=== PATIENT | female | born 1960 | race Hispanic/Latino ===

== ENCOUNTER 2022-02-23 04:02 | Inpatient (IN) | payer OTHER ==
[2022-02-23] MEDS ORDERED: INSULIN -REGULAR HUMAN 50 UNIT/0.5 ML ML ONE (04:36)
[2022-02-23 04:44] LABS: Absolute Lymphocytes (CBC) 4.3 K/uL (0.7-4.9); Hematocrit 34.1 % (36.0-45.0); Lymphocytes % 33.8 % (15.3-44.8); MCV 102.5 fL (80-100); MPV 7.4 fL (7.6-11.3); RBC Red Blood Cell Count 3.33 M/uL (3.86-4.86)
[2022-02-23 04:45] LABS: Protime INR 1.27
[2022-02-23 04:55] LABS: Albumin 2.7 g/dL (3.4-5.0); Magnesium 2.3 mg/dL (1.8-2.4)
[2022-02-23] MEDS ORDERED: EPINEPHRINE/PF 1 MG/ML AMP ONE ×2 (04:56→05:02)
[2022-02-23] MEDS ORDERED: NA CHLORIDE 0.9% 250 ML ONE (04:56)
[2022-02-23 04:57] LABS: Potassium 5.7 mmol/L (3.5-5.1)
[2022-02-23 04:58] LABS: Bilirubin Total 0.5 mg/dL (0.2-1.0); Protein, Total 7.7 g/dL (6.4-8.2)
[2022-02-23 05:00] LABS: Arterial Blood Carboxyhemoglob 0.6 % (0-1.5); Blood O2 Saturation 94.7 % (92-98.5)
[2022-02-23 05:01] LABS: Troponin High Sensitivity 41.5 pg/mL (<58.9)
--- NOTE | 2022-02-23 05:14 | ER ---
Nurse's Notes [facility] Name: Kenisha Carrera Age: 61 yrs Sex: Female : 1960 Arrival Date: 02/23/2022 Time: 04:05 Bed 3 Private MD: Diagnosis: Cardiac arrest, cause unspecified;Anemia, unspecified;End stage renal disease Presentation: 02/23 03:58 Chief complaint: EMS states: Called for patient with respiratory distress, on arrival, lp1 patient breathing 5x/min, unresponsive, reported to have missed dialysis on Saturday; On intubation by EMS, patient in cardiac arrest, CPR began at 0343, intubated with 7.5 ETT, Etomindate 20mg given IV for intubation, Epinephrine x3 given by EMS; CPR continued on arrival to ED. 03:58 Acuity: PURA 1 lp1 03:58 Method Of Arrival: EMS: [facility] lp1 03:58 Care prior to arrival: Oral intubation, CPR via thumper and is still in progress IV lp1 initiated. 20 GA, in the left upper arm Oxygen administered. via AMBU bag. 03:58 Compressions began prior to arrival. lp1 04:00 Coronavirus screen: unable to obtain. Ebola Screen: Unable to complete the Ebola lp1 screening because: Patient is intubated. Initial Sepsis Screen: Does the patient meet any 2 criteria? Systolic BP < 90 mmHg. Altered Mental Status. Does the patient have a suspected source of infection? No. Patient's initial sepsis screen is negative. Risk Assessment: Do you want to hurt yourself or someone else? Unable to obtain. 04:00 Onset of symptoms was February 23, 2022 at 03:30. lp1 Triage Assessment: 03:58 General: Appears Non Responsive . kd3 03:58 Pain: Unable to use pain scale. Patient is unresponsive. Neuro: Level of Consciousness kd3 is unresponsive, Pupils are fixed, dilated, non-reactive. Cardiovascular:. GI: Abdomen is distended. Derm: Skin is dusky, pale, Skin temperature is cool. Historical: - Allergies: 05:59 No Known Allergies; lp1 - Home Meds: 06:00 Unable to obtain [Active]; lp1 - PMHx: 05:59 Dialysis MWF; HTN; Diabetes mellitus; lp1 - PSHx: 05:59 Unable to Obtain; lp1 - Immunization history:: Adult Immunizations up to date. - Social history:: Smoking status: Patient denies any tobacco usage or history of. Screenin:58 Abuse screen: Denies threats or abuse. Denies injuries from another. Nutritional kd3 screening: No deficits noted. Tuberculosis screening: No symptoms or risk factors identified. Fall Risk None identified. Assessment: 03:58 General: Behavior is unresponsive. kd3 03:58 Reassessment: Pt arrived to the ED, intubated, CPR initiated by EMS. Pt removed from kd3 the LUCUS, pulse check. No pulse felt, CPR resumed. Neuro: Level of Consciousness is unresponsive. Cardiovascular: Rhythm is asystole Dialysis shunt: in the left arm. Respiratory:. 03:58 GI: Abdomen is distended. kd3 03:58 Neuro: Pupils are fixed, dilated, non-reactive. EENT:. EENT:. kd3 03:58 Cardiac rhythm is asystole. lp1 04:01 Cardiac rhythm is Sinus Tach. lp1 04:16 Cardiac rhythm is PEA; CPR initiated. lp1 04:18 Reassessment: RT placed patient on ventilator; TV 400, rate 20, 60% O2, PEEP 5. lp1 04:18 Cardiac rhythm is Sinus Tach. lp1 04:46 Cardiac rhythm is PEA, CPR initiated. lp1 04:49 Cardiac rhythm is Sinus Rhythm. lp1 05:01 Reassessment: family at bedside, discussing care with Dr. De Oliveira. lp1 05:10 Reassessment: Daughter at bedside, Kerry, discussed with Dr. De Oliveira, no CPR furthermore. lp1 05:35 Reassessment: Patient to CT. lp1 06:20 Reassessment: OG tube advanced about 8cm per Provider; family at bedside; sharon alcala lp1 applied to patient. 06:38 Reassessment: No purposeful movement noted. Neuro: Pupils are fixed, constricted. lp1 08:26 Reassessment: Pt cleaned of bowel incontinence, stool liquid in consistency and ph continuously leaking from rectum, fecal management system placed, stomach also noted to be distended, OG tube displaced and curled in mouth, d/c and replaced w/ 16 Fr OG. 09:58 Reassessment: Tech at bedside for EEG, pt remains unresponsive w/ no sedation, pupils ph fixed and dilated. 10:15 Reassessment: Core temp noted to have increased, sharon hugger blanket removed. ph 11:04 Reassessment: Report called to Rebecca BURTON in ICU. ph Vital Signs: 02:53 BP 220 / 81; Pulse 112; Resp 20; Pulse Ox 100% on 60% FiO2 ETT vent; lp1 04:03 BP 154 / 128; Pulse 115; Resp 18; Pulse Ox 100% on 15% BVM; lp1 04:22 BP 234 / 90; Pulse 94; Resp 20; Pulse Ox 100% on 60% FiO2 ETT vent; lp1 04:27 BP 141 / 68; Pulse 58; Resp 18; Pulse Ox 96% on 60% FiO2 ETT vent; lp1 04:34 BP 125 / 56; Pulse 52; Resp 20; Pulse Ox 98% on 60% FiO2 ETT vent; lp1 04:38 Temp 99.2(R); lp1 04:40 BP 100 / 53; Pulse 56; Resp 20; Pulse Ox 97% on 60% FiO2 ETT vent; lp1 04:47 Weight 80 kg; lp1 04:50 BP 204 / 73; Pulse 99; Resp 20; Pulse Ox 99% on 60% FiO2 ETT vent; lp1 04:55 BP 176 / 64; Pulse 99; Resp 20; Temp 89.5(C); Pulse Ox 98% on 60% FiO2 ETT vent; lp1 05:00 BP 135 / 67; Pulse 95; Resp 20; Temp 92.9(C); Pulse Ox 98% on 60% FiO2 ETT vent; lp1 05:10 BP 116 / 55; Pulse 92; Resp 20; Temp 95.9(C); Pulse Ox 97% on 60% FiO2 ETT vent; lp1 05:30 BP 106 / 51; Pulse 85; Resp 20; Temp 96.1(C); Pulse Ox 95% on 60% FiO2 ETT vent; lp1 06:00 BP 110 / 57; Pulse 90; Resp 20; Temp 95.6(C); Pulse Ox 96% on 60% FiO2 ETT vent; lp1 06:30 BP 111 / 61; Pulse 96; Resp 21; Temp 95.2(C); Pulse Ox 96% on 60% FiO2 ETT vent; lp1 07:00 BP 129 / 70; Pulse 102; Resp 20; Temp 95.0(C); Pulse Ox 98% on 60% FiO2 ETT vent; ph 07:30 BP 147 / 72; Pulse 108; Resp 20; Temp 96.1(C); Pulse Ox 97% on 60% FiO2 ETT vent; ph 08:00 BP 161 / 73; Pulse 111; Resp 20; Temp 96.0; Pulse Ox 97% on 60% FiO2 ETT vent; ph 08:35 BP 163 / 77; Pulse 111; Resp 20; Temp 96.2(C); Pulse Ox 98% on 60% FiO2 ETT vent; ph 09:00 BP 177 / 77; Pulse 110; Resp 20; Temp 96.7; Pulse Ox 98% on 60% FiO2 ETT vent; ph 09:30 BP 175 / 76; Pulse 105; Resp 20; Temp 97.5(C); Pulse Ox 98% on 60% FiO2 ETT vent; ph 10:00 BP 155 / 74; Pulse 108; Resp 20; Temp 98.8; Pulse Ox 98% on 60% FiO2 ETT vent; ph 10:30 BP 144 / 69; Pulse 107; Resp 20; Temp 99.3; Pulse Ox 98% on 60% FiO2 ETT vent; ph 11:00 BP 123 / 66; Pulse 107; Resp 20; Temp 100.1(C); Pulse Ox 97% on 60% FiO2 ETT vent; ph 11:30 BP 117 / 64; Pulse 107; Resp 20; Temp 100.6(C); Pulse Ox 98% on 60% FiO2 ETT vent; ph Vitals: 03:58 Cardiac Rhythm Assessment [place]. kd3 [place] Coma Score: 03:58 Eye Response: none(1). Verbal Response: none(1). Motor Response: none(1). Total: 3. kd3 ED Course: 03:58 Thermoregulation: warm blanket given to patient. kd3 03:58 Arm band placed on right wrist. kd3 04:00 Maintain EMS IV. Dressing intact. Site clean \T\ dry. Gauge \T\ site: 20g to L UA. lp 1 04:00 7.5 ETT placed by EMS, 25 at the lip. lp1 04:00 Patient has correct armband on for positive identification. Side rails up X2. Client lp1 placed on continuous cardiac and pulse oximetry monitoring. NIBP monitoring applied. 04:05 Patient arrived in ED. mw2 04:18 Assisted provider with central line placement. Set up central line tray. Triple lumen lp1 line placed in right femoral. Line placed by Richy HERNANDEZ Placement verified by CXR, blood return, Blood was collected. Time-out/Briefing performed prior to start of procedure? Yes. Was handwashing/sanitizing done immediately prior to procedure? Yes. Was patient positioned to in a way to prevent air embolism? Yes. Was procedure site sterilized? Yes, with Was the site allowed to dry? During the procedure, did the Practitioner(s) maintain a sterile field? Yes. Were unused ports clamped during insertion? Yes. Was blood aspirated from each lumen? Yes. After the procedure, did the Practitioner(s) clean the site and apply a sterile dressing? Yes. 04:19 Davide D eOliveira DO is Attending Physician. ms3 04:20 NGT: inserted 14 Fr. other Oral. lp1 04:22 Triage completed. lp1 04:45 XRAY Chest (1 view) In Process Unspecified. EDMS 04:55 Pradhan cath inserted, using sterile technique, 16 Fr., by ED staff, balloon inflated, to lp1 gravity drainage. 05:04 Anne Marie Vo, MICHEAL is Primary Nurse. kd3 05:12 Jaxson Solitario MD is Hospitalizing Provider. ms3 05:52 CT Head Brain wo Cont In Process Unspecified. EDMS 06:17 Zuhair Lima MD is Hospitalizing Provider. ms3 07:31 Primary Nurse role handed off by Anne Marie Vo RN ph 07:31 No Lassiter RN is Primary Nurse. ph 08:36 Fecal management system placed. NGT: inserted 16 Fr. other via oral route. ph 12:07 Patient admitted, IV remains in place. ph Administered Medications: 04:57 Discontinued: DOPamine 5 mcg/kg/min IV at 10 mcg/min continuous lp1 04:00 Drug: Calcium Chloride 1 grams Route: IVP; Site: left upper arm; lp1 05:21 Follow up: Response: No adverse reaction lp1 04:01 Drug: Sodium Bicarbonate 1 amp Route: IVP; Site: left upper arm; lp1 05:21 Follow up: Response: No adverse reaction lp1 04:03 Drug: Calcium Chloride 1 grams Route: IVP; Site: left upper arm; lp1 05:21 Follow up: Response: No adverse reaction lp1 04:16 Drug: EPINEPHrine 0.1mg/mL 1:10,000 1 mg Route: IVP; Site: left upper arm; lp1 05:21 Follow up: Response: No adverse reaction lp1 04:18 Drug: Sodium Bicarbonate 1 amp Route: IVP; Site: left upper arm; lp1 05:22 Follow up: Response: No adverse reaction lp1 04:28 Drug: Sodium Bicarbonate 1 amp Route: IVP; Site: left upper arm; lp1 05:22 Follow up: Response: No adverse reaction lp1 04:29 Drug: Insulin Regular Human 10 units Route: IVP; Site: left upper arm; lp1 05:22 Follow up: Response: No adverse reaction lp1 04:39 Drug: Atropine 0.5 mg Route: IVP; Site: right femoral; lp1 05:22 Follow up: Response: No adverse reaction lp1 04:43 Drug: DOPamine 5 mcg/kg/min Route: IV; Rate: 10 mcg/min; Site: right femoral; lp1 04:46 Drug: EPINEPHrine 0.1mg/mL 1:10,000 1 mg Route: IVP; Site: right femoral; lp1 05:22 Follow up: Response: No adverse reaction lp1 Medication: 03:58 VIS not applicable for this client. kd3 Point of Care Testing: Blood Glucose: 04:08 Blood Glucose: 203 mg/dL; lp1 Ranges: Outcome: 05:14 Decision to Hospitalize by Provider. ms3 07:00 Outcome Resuscitation successful ph 12:06 Admitted to ICU accompanied by nurse, accompanied by tech, family with patient, via ph stretcher, room 1, with oxygen, on monitor, with chart, Other accompanied by RT Report called to Rebecca BURTON 12:06 Condition: stable 12:07 Patient left the ED. ph Signatures: Dispatcher [employer] EDMS Franny Hartley RN RN lp1 No Lassiter RN RN Rebel Andrews mw2 Davide De Oliveira DO DO ms3 Anne Marie Vo RN RN kd3 Corrections: (The following items were deleted from the chart) 05:18 04:58 BP 204 / 73; Pulse 99bpm; Resp 20bpm; Pulse Ox 99% FiO2 60% vent; lp1 lp1
--- NOTE | 2022-02-23 05:14 | EDPHYS ---
Physician Documentation [facility] Name: Kenisha Carrera Age: 61 yrs Sex: Female : 1960 Arrival Date: 02/23/2022 Time: 04:05 Bed 3 Private MD: ED Physician Davide De Oliveira HPI: 02/23 05:38 This 61 yrs old Female presents to ER via EMS with complaints of CPR. ms3 05:38 Preceding the arrest, the patient was dyspneic. The arrest occurred at home. ms3 Pre-hospital course: The arrest was witnessed by EMS. EMS care prior to arrival: initiation of ACLS, peripheral IV, was successfully placed. intubation was successfully performed, EMS call time was 03:00. EMS on scene time was ACLS details: Initial rhythm was normal sinus rhythm. The presenting rhythm is Sinus Tachycardia Airway: Ambu assist ventilation, Medications given by EMS prior to arrival - Epinephrine IV x 3 doses, Defibrillation was not performed, an external pacer was not used, Response to therapy: continued arrest, CPR began at 0343. Historical: - Allergies: 05:59 No Known Allergies; lp1 - Home Meds: 06:00 Unable to obtain [Active]; lp1 - PMHx: 05:59 Dialysis MWF; HTN; Diabetes mellitus; lp1 - PSHx: 05:59 Unable to Obtain; lp1 - Immunization history:: Adult Immunizations up to date. - Social history:: Smoking status: Patient denies any tobacco usage or history of. ROS: 05:41 Unable to obtain ROS due to Patient unresponsive. ms3 Exam: 04:34 Back: No spinal tenderness. No costovertebral tenderness. Full range of motion. ms3 Skin: Warm, dry with normal turgor. Normal color with no rashes, no lesions, and no evidence of cellulitis. 04:34 ECG was reviewed by the Attending Physician. 04:34 Respiratory: Respirations: intubated, Breath sounds: rales, that are moderate, are heard diffusely, Respiratory rate: BVM 04:34 Abdomen/GI: Inspection: distension, Bowel sounds: normal, Palpation: soft. 04:34 Neuro: Mentation: unable to test, Patient unresponsive, Memory: unable to test, Patient unresponsive, Cranial nerves: unable to test, Patient unresponsive, Cerebellar function: unable to test, Patient unresponsive, Motor: unable to test, Patient unresponsive s/p cardiac arrest, Sensation: unable to test, Patient unresponsive, seizure activity, is not displayed by the patient. 05:41 Head/Face: Normocephalic, atraumatic. ms3 05:41 Constitutional: The patient appears obviously ill. 05:41 Eyes: Periorbital structures: appear normal, Pupils: are fixed and dilated. Vital Signs: 02:53 BP 220 / 81; Pulse 112; Resp 20; Pulse Ox 100% on 60% FiO2 ETT vent; lp1 04:03 BP 154 / 128; Pulse 115; Resp 18; Pulse Ox 100% on 15% BVM; lp1 04:22 BP 234 / 90; Pulse 94; Resp 20; Pulse Ox 100% on 60% FiO2 ETT vent; lp1 04:27 BP 141 / 68; Pulse 58; Resp 18; Pulse Ox 96% on 60% FiO2 ETT vent; lp1 04:34 BP 125 / 56; Pulse 52; Resp 20; Pulse Ox 98% on 60% FiO2 ETT vent; lp1 04:38 Temp 99.2(R); lp1 04:40 BP 100 / 53; Pulse 56; Resp 20; Pulse Ox 97% on 60% FiO2 ETT vent; lp1 04:47 Weight 80 kg; lp1 04:50 BP 204 / 73; Pulse 99; Resp 20; Pulse Ox 99% on 60% FiO2 ETT vent; lp1 04:55 BP 176 / 64; Pulse 99; Resp 20; Temp 89.5(C); Pulse Ox 98% on 60% FiO2 ETT vent; lp1 05:00 BP 135 / 67; Pulse 95; Resp 20; Temp 92.9(C); Pulse Ox 98% on 60% FiO2 ETT vent; lp1 05:10 BP 116 / 55; Pulse 92; Resp 20; Temp 95.9(C); Pulse Ox 97% on 60% FiO2 ETT vent; lp1 05:30 BP 106 / 51; Pulse 85; Resp 20; Temp 96.1(C); Pulse Ox 95% on 60% FiO2 ETT vent; lp1 06:00 BP 110 / 57; Pulse 90; Resp 20; Temp 95.6(C); Pulse Ox 96% on 60% FiO2 ETT vent; lp1 06:30 BP 111 / 61; Pulse 96; Resp 21; Temp 95.2(C); Pulse Ox 96% on 60% FiO2 ETT vent; lp1 07:00 BP 129 / 70; Pulse 102; Resp 20; Temp 95.0(C); Pulse Ox 98% on 60% FiO2 ETT vent; ph 07:30 BP 147 / 72; Pulse 108; Resp 20; Temp 96.1(C); Pulse Ox 97% on 60% FiO2 ETT vent; ph 08:00 BP 161 / 73; Pulse 111; Resp 20; Temp 96.0; Pulse Ox 97% on 60% FiO2 ETT vent; ph 08:35 BP 163 / 77; Pulse 111; Resp 20; Temp 96.2(C); Pulse Ox 98% on 60% FiO2 ETT vent; ph 09:00 BP 177 / 77; Pulse 110; Resp 20; Temp 96.7; Pulse Ox 98% on 60% FiO2 ETT vent; ph 09:30 BP 175 / 76; Pulse 105; Resp 20; Temp 97.5(C); Pulse Ox 98% on 60% FiO2 ETT vent; ph 10:00 BP 155 / 74; Pulse 108; Resp 20; Temp 98.8; Pulse Ox 98% on 60% FiO2 ETT vent; ph 10:30 BP 144 / 69; Pulse 107; Resp 20; Temp 99.3; Pulse Ox 98% on 60% FiO2 ETT vent; ph 11:00 BP 123 / 66; Pulse 107; Resp 20; Temp 100.1(C); Pulse Ox 97% on 60% FiO2 ETT vent; ph 11:30 BP 117 / 64; Pulse 107; Resp 20; Temp 100.6(C); Pulse Ox 98% on 60% FiO2 ETT vent; ph [place] Coma Score: 03:58 Eye Response: none(1). Verbal Response: none(1). Motor Response: none(1). Total: 3. kd3 Procedures: 04:33 Central Line: the site was prepped with in sterile fashion, a triple lumen catheter was la1 inserted, in the right femoral vein, in 1 attempts. placement was verified, by blood return, the site was dressed with Tegaderm, using sterile technique, the patient tolerated the procedure, well. MDM: 04:19 Patient medically screened. ms3 04:34 Data reviewed: vital signs, nurses notes, lab test result(s), and as a result, I will ms3 admit patient. Data interpreted: bus driver/monitor: rate is 92 beats/min, rhythm is normal sinus rhythm, with no ectopy, Interpretation: normal rate, normal rhythm. 05:09 Differential diagnosis: arrythmia, cardiac arrest, respiratory arrest, Hyperkalemia. ED ms3 course: Per patient's daughter Kerry patient is DNR. They do not wish patient to receive chest compressions. 05:38 ED course: Page placed for Dr Mera. Answering service states Dr Calderon is air pollution engineer ms3 and will be calling back.. 05:50 ED course: Patient with ROSC at 0401. Patient went into PEA at 0416 and ACLS performed ms3 with ROSC at 0418 with sinus tachycardia. Patient went into PEA at 0446 and ACLS performed with ROSC at 0449 with sinus tachycardia.. ED course: . 06:07 ED course: Discussed case with Dr Calderon and if patient is stable will attempt ms3 dialysis after discussion with patient's family.. 02/23 04:19 Order name: CBC with Diff; Complete Time: 04:51 ms3 02/23 04:19 Order name: Magnesium; Complete Time: 05:11 ms3 02/23 04:19 Order name: NT PRO-BNP; Complete Time: 05:11 ms3 02/23 04:19 Order name: PT-INR; Complete Time: 04:51 ms3 02/23 04:19 Order name: Troponin HS; Complete Time: 05:11 ms3 02/23 04:19 Order name: CMP; Complete Time: 05:11 ms3 02/23 04:45 Order name: Lactate; Complete Time: 05:31 bb 02/23 04:45 Order name: Blood Culture Adult (2) bb 02/23 04:59 Order name: ABG Arterial Blood Gas; Complete Time: 05:01 EDMS 02/23 05:51 Order name: COVID-19 SARS RT PCR (Document "Date of Onset" if Symptomatic); Complete bb Time: 08:20 02/23 07:25 Order name: ABG Arterial Blood Gas EDMS 02/23 07:25 Order name: CBC with Automated Diff EDMS 02/23 07:25 Order name: Comprehensive Metabolic Panel EDMS 02/23 07:27 Order name: Lactate EDMS 02/23 04:19 Order name: XRAY Chest (1 view) ms3 02/23 04:19 Order name: EKG; Complete Time: 04:20 ms3 02/23 04:19 Order name: Cardiac monitoring; Complete Time: 04:24 ms3 02/23 05:09 Order name: CT Head Brain wo Cont ms3 02/23 07:21 Order name: CONS Physician Consult EDMS 02/23 04:19 Order name: EKG - Nurse/Tech; Complete Time: 04:41 ms3 02/23 04:19 Order name: IV Saline Lock; Complete Time: 04:24 ms3 02/23 04:19 Order name: Labs collected and sent; Complete Time: 04:41 ms3 02/23 04:19 Order name: O2 Per Protocol; Complete Time: 04:24 ms3 02/23 04:19 Order name: O2 Sat Monitoring; Complete Time: 04:24 ms3 EC:34 Rate is 48 beats/min. Rhythm is regular. QRS [place] is Normal. [place] interval is normal. ms3 Clinical impression: Sinus bradycardia. Interpreted by me. Reviewed by me. Administered Medications: 04:57 Discontinued: DOPamine 5 mcg/kg/min IV at 10 mcg/min continuous lp1 04:00 Drug: Calcium Chloride 1 grams Route: IVP; Site: left upper arm; lp1 05:21 Follow up: Response: No adverse reaction lp1 04:01 Drug: Sodium Bicarbonate 1 amp Route: IVP; Site: left upper arm; lp1 05:21 Follow up: Response: No adverse reaction lp1 04:03 Drug: Calcium Chloride 1 grams Route: IVP; Site: left upper arm; lp1 05:21 Follow up: Response: No adverse reaction lp1 04:16 Drug: EPINEPHrine 0.1mg/mL 1:10,000 1 mg Route: IVP; Site: left upper arm; lp1 05:21 Follow up: Response: No adverse reaction lp1 04:18 Drug: Sodium Bicarbonate 1 amp Route: IVP; Site: left upper arm; lp1 05:22 Follow up: Response: No adverse reaction lp1 04:28 Drug: Sodium Bicarbonate 1 amp Route: IVP; Site: left upper arm; lp1 05:22 Follow up: Response: No adverse reaction lp1 04:29 Drug: Insulin Regular Human 10 units Route: IVP; Site: left upper arm; lp1 05:22 Follow up: Response: No adverse reaction lp1 04:39 Drug: Atropine 0.5 mg Route: IVP; Site: right femoral; lp1 05:22 Follow up: Response: No adverse reaction lp1 04:43 Drug: DOPamine 5 mcg/kg/min Route: IV; Rate: 10 mcg/min; Site: right femoral; lp1 04:46 Drug: EPINEPHrine 0.1mg/mL 1:10,000 1 mg Route: IVP; Site: right femoral; lp1 05:22 Follow up: Response: No adverse reaction lp1 Point of Care Testing: Blood Glucose: 04:08 Blood Glucose: 203 mg/dL; lp1 Ranges: Critical Glucose Levels:Adult <50 mg/dl or >400 mg/dl <40 mg/dl or >180 mg/dl Disposition: 05:53 Co-signature as Attending Physician, Davide De Oliveira DO. ms3 06:08 Critical Care:. ms3 Disposition Summary: 02/23/22 05:14 Hospitalization Ordered Hospitalization Status: Inpatient Admission ms3 Location: Intensive Care Unit ms3 Condition: Critical ms3 Problem: new ms3 Symptoms: have improved ms3 Bed/Room Type: Standard ms3 Provider: Zuhair Lima(02/23/22 06:17) ms3 Room Assignment: 5-(02/23/22 10:06) aa5 Diagnosis - Cardiac arrest, cause unspecified ms3 - Anemia, unspecified ms3 - End stage renal disease ms3 Forms: - Medication Reconciliation Form ms3 - SBAR form ms3 Critical care time excluding procedures: 06:08 Critical care time: Bedside Care: 75 minutes, Consultation: 10 minutes, Family ms3 Intervention: 15 minutes. Total time: 100 minutes Signatures: Dispatcher [employer] EDMS María Elena Mcdonald RN RN aa5 Franny Hartley RN RN lp1 Richy Collier FNP-C LIANA-Davide Bailey DO DO ms3 Corrections: (The following items were deleted from the chart) 05:43 05:38 Pre-hospital course: The arrest was witnessed by EMS. EMS care prior to arrival: ms3 initiation of ACLS, peripheral IV, was successfully placed. intubation was successfully performed, EMS call time was 03:00. EMS on scene time was ms3 06:17 05:14 Jaxson Solitario ms3 ms3 10:06 05:14 ms3 aa5
[2022-02-23] MEDS: INSULIN -REGULAR HUMAN 50 UNIT/0.5 ML ML SQ SCH ×4 (07:30→20:40)
--- NOTE | 2022-02-23 07:30 | P.HP ---
Certification for Inpatient Patient admitted to: Inpatient Practitioner: I am a practitioner with admitting privileges, knowledge of patient current condition, hospital course, and medical plan of care. Services: Services provided to patient in accordance with Admission requirements found in Title 42 Section 412.3 of the Code of Federal Regulations Patient History Date of Service: 02/23/22 History of Present Illness: 61yo F, PMH: ESRD on HD, chronic pain, DM2, HTN, hypothyroidisim Brought to ED with CPR en route for ~25 minutes, continued her for additiona ~5 minutes before obtaining ROSC. Patient was breathing slow and eventually lost consciousness ~2 minutes prior to EMS arrival. Patient was noted to be breathing <4 bpm. She was intubated and had cardiac arrest. Family report patient was in usual state of health until last night - she reported feeling somewhat short of breath. She went out of town 2 days ago to go to a . Continued to take all medications as prescribed, but she did miss dialysis. In the ED, she was noted to be unresponsive with fixed and dilated pupils, not breathing over the vent, with mild leukocytosis, high lactic acidosis, and significant metabolic acidosis. Patient admitted to ICU for further management. Allergies No Known Allergies Allergy (Unverified 02/23/22 07:37) - Past Medical/Surgical History -: DM2 -: HTN -: chronic pain -: hypothyroidism -: ERSD on HD Past Surgical History: Unable to obtain - Family History Family History: Reviewed- Non-Contributory - Social History Smoking Status: Unknown if ever smoked Place of Residence: Home Review of Systems is unable to be obtained Physical Examination - Physical Exam General: Unresponsive HEENT: Other (dilated and nonreactive pupils) Neck: No LAD Respiratory: Other (b/l crackles at bases, on mechanical ventilation) Cardiovascular: Regular rate/rhythm, Edema (2+ b/l lower extremity edema) Capillary refill: >2 Seconds Gastrointestinal: Soft and benign, Non-distended Integumentary: Other (chronic nonhealing wounds on b/l legs, no purulent drainage, no surrounding erythema) Neurological: Other (unresponsive, +doll's eye, negative: pupillary reflex, corneal reflex, gag reflex) Urinary: Pradhan catheter (placed in ED) - Studies Laboratory Data (last 24 hrs) 02/23/22 04:15: PT 14.0 H, INR 1.27 02/23/22 04:15: Sodium 138, Potassium 5.7 H*, BUN 69 H, Creatinine 8.76 H*, Glucose 305 H, Magnesium 2.3, Total Bilirubin 0.5, AST 72 H, ALT 62, Alkaline Phosphatase 135 H 02/23/22 04:15: WBC 12.8 H, Hgb 10.6 L, Hct 34.1 L, Plt Count 211 Assessment and Plan - Advance Directives Does patient have a Living Will: No Does patient have a Durable POA for Healthcare: No Physician Review Additional Text: Problem List metabolic acidosis s/p pulmonary and cardiac arrest ESRD on HD unresponsive HTN DM2 GERD Chronic pain CAD HLD Patient with fixed and dilated pupils, absent corneal and gag reflex has not received any sedatives. on mechanical ventilation not requiring pressors low bicarb, hyperkalemia, leukocytosis, lactic acidosis unclear etiology that lead to patient having pulmonary arrest, possibly build of toxins / potassium / fluid lead to respiratory depression and arrest ~25-30min CPR LFTs increased, suspect shock liver patient with no rectal tone CT head without changes - suspect too early to visualize anoxic brain injury family want to continue treatment, DNR going forward Nephrology consulted for dialysis start bicarb drip recheck ABG and labs in 3 hrs admit to ICU empiric antibiotics for possible infection. currently no overt evidence of infe ction very poor prognosis family on way to visit discussed with patient's oldest daughter, who makes medical decisions Code: DNR Time Spent Managing Pts Care (In Minutes): 75
[2022-02-23] MEDS ORDERED: VANCOMYCIN 1 GM in NA CHLORIDE 0.9% 250 ML IVPB SCH (08:00)
[2022-02-23] MEDS ORDERED: D5W 1,000 ML with NA BICARB 8.4% 150 MEQ IV SCH ×2 (08:00)
[2022-02-23] MEDS ORDERED: CEFTRIAXONE 1,000 MG in NA CHLORIDE 0.9% 50 ML IVPB SCH (09:00)
[2022-02-23] MEDS: HEPARIN 5000 UNIT/ML 1 ML VIAL SQ SCH ×2 (09:00→20:40)
[2022-02-23] MEDS ORDERED: CEFTRIAXONE 1000 MG/VIAL ONE (09:08)
[2022-02-23] MEDS ORDERED: NA CHLORIDE 0.9% 50 ML ONE (09:08)
[2022-02-23] MEDS ORDERED: HEPARIN 5000 UNIT/ML 1 ML VIAL ONE (09:08)
--- NOTE | 2022-02-23 10:17 | RAD REPORT ---
EXAM DESCRIPTION: CT - Head Brain Wo Cont - 02/23/2022 6:56 am CLINICAL HISTORY: Cardiac Arrest COMPARISON: None. TECHNIQUE: CT HEAD WITHOUT IV CONTRAST on 02/23/2022 5:09 AM CDT This exam was performed according to our departmental dose-optimization program, which includes autom ated exposure control, adjustment of the mA and/or kV according to patient size and/or use of iterati ve reconstruction technique. FINDINGS: There is no acute hemorrhage, mass effect or midline shift. There is minimal encephalomala chayo or edema in the left frontal lobe periventricular white matter. There is no hydrocephalus. There is no significant volume loss for age. The calvarium is intact. Orbits and globes are unremarkable. The paranasal sinuses are clear. Mastoid air cells are clear. IMPRESSION: No acute intracranial findings. Electronically signed by: Joe Saucedo MD 02/23/2022 6:41 AM CDT Due to temporary technical issues with the PACS/Fluency reporting system, reports are being signed by the in house radiologists without review as a courtesy to insure prompt reporting. The interpreting radiologist is fully responsible for the content of the report.
--- NOTE | 2022-02-23 11:06 | RAD REPORT ---
EXAM DESCRIPTION: RAD - Chest Single View - 02/23/2022 4:43 am CLINICAL HISTORY: 61 years Female, cardiac arrest COMPARISON: Prior chest x-ray report from 08/16/2021. The images were not available for comparison. TECHNIQUE: Single portable x-ray view of the chest performed on 02/23/2022 at 4:35 AM FINDINGS: The lungs are well-expanded. There are diffuse perihilar interstitial opacities which may reflect vascular congestion. A defibrillator pad projects over the left inferior hemithorax partially obscuring the left inferior hemithorax. There is no evidence of a pneumothorax. The cardiac silhouette is prominent and may be accentuated by the portable supine technique. The mediastinal contours are normal. No acute osseous abnormality is identified. No acute soft tissue abnormalities are seen. Lines and tubes: The endotracheal tube tip terminates approximately 8 mm above the watson. The feed ing tube extends below the diaphragm to the level of the GE junction. The proximal sidehole projects above the diaphragm. There are multiple overlying monitor and storage bin tender leads. Free air: None IMPRESSION: 1. Diffuse perihilar interstitial opacities which may reflect vascular congestion. 2. The tip of the endotracheal tube terminates approximately 8 mm above the watson. 3. The feeding tube extends below the diaphragm to the level of the GE junction. The proximal sideh ole projects above the diaphragm. Recommend advancement. 4. Partial obscuration of the left inferior hemithorax due to an overlying defibrillator pad. Electronically signed by: Kay Benitez DO 02/23/2022 4:57 AM CDT Due to temporary technical issues with the PACS/Fluency reporting system, reports are being signed by the in house radiologists without review as a courtesy to insure prompt reporting. The interpreting radiologist is fully responsible for the content of the report.
[2022-02-23 11:07] LABS: Lymphocytes % 7.1 % (15.3-44.8); MCV 95.1 fL (80-100); RBC Red Blood Cell Count 3.78 M/uL (3.86-4.86)
[2022-02-23 11:14] LABS: Albumin 2.7 g/dL (3.4-5.0); Bilirubin Total 0.9 mg/dL (0.2-1.0); Potassium 4.4 mmol/L (3.5-5.1)
[2022-02-23 12:23] VITALS: BMI 30.2
[2022-02-23] MEDS ORDERED: NOREPINEPHRINE 4 MG in D5W 250 ML IV SCH (12:30)
[2022-02-23] MEDS ORDERED: NOREPINEPHRINE BITARTRATE/D5W 4 MG/250 ML BAG IV ONE (12:46)
[2022-02-23] MEDS ORDERED: NOREPINEPHRINE BITARTRATE/D5W 4 MG/250 ML BAG IV SCH (13:15)
[2022-02-23 13:21] LABS: Blood Morphology Comment NOTED (NOT SEEN); Hypochromasia 1+; Platelet Estimate ADEQ
[2022-02-23 16:16] LABS: Arterial Blood Carboxyhemoglob 0.5 % (0-1.5); Blood Gas Oxyhemoglobin 96.2 % (94-97); Blood O2 Saturation 98.5 % (92-98.5)
[2022-02-23] MEDS ORDERED: VANCOMYCIN 1.75 GM in NA CHLORIDE 0.9% 500 ML IVPB ONE (18:00)
--- NOTE | 2022-02-23 20:15 | P.CNS ---
Date of Consult: 02/23/22 Reason for Consult: ESRD, Severe acidemia Requesting Physician: Zuhair Lima Chief Complaint: Cardiac arrest History of Present Illness: 61F w/ PMHx of ESRD on HD TTS at [facility], Htn, DM2, hypothyroidism & chronic pain issues who p/w cardiac arrest. She missed her last outpt HD treatment. She had CPR for about 30 mins. Currently on/off vasopressor. Pupils dilated. Was seen while receiving hemodialysis. Initially severely acidotic w/ bld pH 6.9, improved to pH 7.5. She received IV bicarb. Repeat bld gas showed respi alk + metab acidosis. Allergies No Known Allergies Allergy (Unverified 02/23/22 07:37) - Past Medical/Surgical History -: DM, -: ESRD M,T,Th,S -: hyperlipidemia -: Hypothyroid -: neuropathy -: LL abscess -: IV drug abuse -: Osteo L ankle /foot -: anemia -: Hyperparathyroid -: clots in back eye DM -: R foot surgyery -: gallbladder -: c section -: kailash leg vein surgery -: eye surgery Kailash -: back surgery-ruptured disc - Social History Alcohol use: No CD- Drugs: No Caffeine use: Yes Place of Residence: Home Review of Systems d/t AMS Physical Examination Temp Pulse Resp BP Pulse Ox 98.5 F 106 H 21 H 136/65 100 02/23/22 16:00 02/23/22 18:30 02/23/22 18:30 02/23/22 18:30 02/23/22 18:30 General: Other (Intubated/sedated) HEENT: Atraumatic, Normocephalic, Other (Intubated) Neck: Supple Respiratory: Normal air movement, Other (Symmetric chest expansion) Cardiovascular: No rubs, No murmurs Gastrointestinal: Soft and benign, Distended Musculoskeletal: No warmth Integumentary: No breakdown Neurological: Other (Pupils dilated, unresponsive to verbal or tactile commands) Lymphatics: No axilla or inguinal lymphadenopathy Urinary: Other (No bladder distention) External genitalia: Deferred Rectal: Deferred Laboratory Data (last 24 hrs) 02/23/22 04:15: PT 14.0 H, INR 1.27 02/23/22 04:15: Sodium 138, Potassium 5.7 H*, BUN 69 H, Creatinine 8.76 H*, Glucose 305 H, Magnesium 2.3, Total Bilirubin 0.5, AST 72 H, ALT 62, Alkaline Phosphatase 135 H 02/23/22 04:15: WBC 12.8 H, Hgb 10.6 L, Hct 34.1 L, Plt Count 211 Conclusions/Impression: # ESRD on outpt HD TTS at [facility] HD today via SLEDD mode x 3 hrs as tolerated Monitor renal panel # Hyperkalemia HD as above # S/p cardiac arrest ON IV pressor Keep MAP > 65 Per ICU team # Anoxic brain injury Neurology evaluating # Metabolic acidosis Improved w/ IV bicarb HD as above # Anemia Monitor H/H # Renal osteodystrophy Monitor Ca & Phos # Dispo Prognosis poor
[2022-02-23 20:20] VITALS: O2SAT 100
[2022-02-23] MEDS ORDERED: Caclcium Chloride 10% INJ SYR IV ONE (21:56)
[2022-02-23] MEDS ORDERED: SODIUM BICARB 50 MEQ/50ML VIAL IV ONE (21:56)
[2022-02-23] MEDS ORDERED: ATROPINE SULF 1 MG/10 ML SYR IV ONE (21:56)
[2022-02-23] MEDS ORDERED: EPINEPHRINE/PF 1 MG/ML AMP IV ONE (21:56)
[2022-02-23] MEDS ORDERED: DOPAMINE 400 MG/250ML D5W PREMIX IV ONE (21:56)
[2022-02-23] MEDS ORDERED: EPINEPHrine 1 MG/10 ML SYR IV ONE (21:56)
[2022-02-23] MEDS ORDERED: D50W 25 GM/50 ML SYRINGE IV ONE (21:56)
[2022-02-23 22:09] VITALS: BP 61/30; TEMP 98.9
--- NOTE | 2022-02-23 22:53 | P.DS ---
Admission Date: 02/23/22 Discharge Date: 02/23/22 Disposition: Hospital Course: 61yo F, PMH: ESRD on HD, chronic pain, DM2, HTN, hypothyroidisim Brought to ED with CPR en route for ~25 minutes, continued her for additiona ~5 minutes before obtaining ROSC. Patient was breathing slow and eventually lost consciousness ~2 minutes prior to EMS arrival. Patient was noted to be breathing <4 bpm. She was intubated and had cardiac arrest. Family report patient was in usual state of health until last night - she reported feeling somewhat short of breath. She went out of town 2 days ago to go to a . Continued to take all medications as prescribed, but she did miss dialysis. In the ED, she was noted to be unresponsive with fixed and dilated pupils, not breathing over the vent, with mild leukocytosis, high lactic acidosis, and significant metabolic acidosis. Patient admitted to ICU for further management. Problem List metabolic acidosis s/p pulmonary and cardiac arrest ESRD on HD unresponsive HTN DM2 GERD Chronic pain CAD HLD Patient with fixed and dilated pupils, absent corneal and gag reflex has not received any sedatives. on mechanical ventilation not requiring pressors low bicarb, hyperkalemia, leukocytosis, lactic acidosis unclear etiology that lead to patient having pulmonary arrest, possibly build of toxins / potassium / fluid lead to respiratory depression and arrest ~25-30min CPR LFTs increased, suspect shock liver patient with no rectal tone CT head without changes - suspect too early to visualize anoxic brain injury family want to continue treatment, DNR going forward Nephrology consulted for dialysis start bicarb drip recheck ABG and labs in 3 hrs admit to ICU empiric antibiotics for possible infection. currently no overt evidence of infection very poor prognosis family on way to visit discussed with patient's oldest daughter, who makes medical decisions Code: DNR EEG performed in the late morning. Neurology reviewed remotely and reported zero brain activity, no reaction Patient is normothermic, acidosis corrected, electrolytes improved. Underwent low flow SLEDD, required maxed out levophed to tolerate this. Patient remained with lack of brainstem reflexes, no rectal tone with incontinence of profuse watery stools Findings were reviewed with her children, who stated wouldn't want to continue to have her suffer, and were considering withdrawal of care. Patient's other daughter is coming in from out of town this evening, and they would like to discuss with her before final decision. This evening family arrived and agreed to withdraw care, patient was extubated and subsequently at 2157 Vital Signs/Physical Exam: Temp Pulse Resp BP Pulse Ox 98.9 F 64 20 61/30 L 99 02/23/22 20:00 02/23/22 21:45 02/23/22 21:45 02/23/22 21:45 02/23/22 21:30 General: Unresponsive HEENT: Other (pupils fixed, dilated. ) Respiratory: Other (no spontaneous breathing) Cardiovascular: Other (no heart sounds) Laboratory Data at Discharge: WBC 14.1 K/uL (4.3-10.9) H 02/23/22 10:45 Hgb 11.9 g/dL (12.0-15.0) L 02/23/22 10:45 Hct 36.0 % (36.0-45.0) 02/23/22 10:45 Plt Count 283 K/uL (152-406) D 02/23/22 10:45 PT 14.0 SECONDS (9.5-12.5) H 02/23/22 04:15 INR 1.27 02/23/22 04:15 Sodium 141 mmol/L (136-145) 02/23/22 10:45 Potassium 4.4 mmol/L (3.5-5.1) 02/23/22 10:45 BUN 82 mg/dL (7-18) H 02/23/22 10:45 Creatinine 9.06 mg/dL (0.55-1.3) H* 02/23/22 10:45 Glucose 57 mg/dL (74-106) L 02/23/22 10:45 Magnesium 2.3 mg/dL (1.8-2.4) 02/23/22 04:15 Total Bilirubin 0.9 mg/dL (0.2-1.0) 02/23/22 10:45 AST 427 U/L (15-37) H* D 02/23/22 10:45 ALT 174 U/L (12-78) H D 02/23/22 10:45 Alkaline Phosphatase 194 U/L (45-117) H 02/23/22 10:45 Followup: Unknown,U [Primary Care Provider] -
--- NOTE | 2022-02-24 06:22 | EKG ---
Test Date: 2022-02-23 Test Time: 04:34:54 Paste Worker: GLENN MEASUREMENT RESULTS: Intervals: Rate: 48 IL: 156 QRSD: 102 QT: 536 QTc: 478 Maupin: P: 82 IL: 156 QRS: 96 T: 36 INTERPRETIVE STATEMENTS: Marked sinus bradycardia with sinus arrhythmia Rightward axis Incomplete right bundle branch block Abnormal ECG No previous ECG available for comparison Electronically Signed On 02-24-22 06:21:52 CDT by Wally Zamora
--- NOTE | 2022-02-24 11:22 | P.CNS ---
Date of Consult: 02/23/22 Reason for Consult: Cardiopulmonary arrest Chief Complaint: Cardiac arrest History of Present Illness: Patient is 61 years of age end-stage renal disease hemodialysis admitted with cardiac arrest she has had CPR over 25 minutes currently on a ventilator stable is off any vasopressors comatose PEEP pupils fixed and dilated Allergies No Known Allergies Allergy (Unverified 02/23/22 07:37) - Past Medical/Surgical History -: DM, -: ESRD M,T,Th,S -: hyperlipidemia -: Hypothyroid -: neuropathy -: LL abscess -: IV drug abuse -: Osteo L ankle /foot -: anemia -: Hyperparathyroid -: clots in back eye DM -: R foot surgyery -: gallbladder -: c section -: kailash leg vein surgery -: eye surgery Kailash -: back surgery-ruptured disc - Social History Alcohol use: No CD- Drugs: No Caffeine use: Yes Place of Residence: Home Review of Systems is unable to be obtained Physical Examination Temp Pulse Resp BP Pulse Ox 98.9 F 64 20 61/30 L 99 02/23/22 20:00 02/23/22 21:45 02/23/22 21:45 02/23/22 21:45 02/23/22 21:30 General: Comatose Respiratory: Clear to auscultation bilaterally Cardiovascular: Normal S1 S2, Edema Neurological: Other (Pupils fixed and dilated doll's eye response is negative no response to plantar reflexes) - Problems (1) Anoxic encephalopathy Status: Acute Plan: Patient admitted with an anoxic encephalopathy secondary to cardiac arrest on admission patient was very acidotic multiple electrolyte abnormalities interstitial changes on chest x-ray currently stable on a ventilator unlikely to survive he was already made a DNR consider withdrawing care in 24 hours if no response blood cultures have been ordered most likely a cardiac event although troponins were negative no ST-T changes
--- NOTE | 2022-02-28 08:50 | EEG ---
CHART: [id number] TEST ID#: [id number] DATE OF STUDY: 02/23/2022 THE EEG WAS RECORDED PORTABLE IN THE EMERGENCY ROOM ON A 14 CHANNEL MACHINE. ELECTRODES WERE APPLIED IN THE USUAL MANNER USING THE INTERNATIONAL 10-20 SYSTEM. THE EEG BACKGROUNDCONSISTES OF PROLONGED PERIODS MARKED GENERALIZED VOLTAGE ATTENUATION BY BRIEF 1-2 SECOND EPISODES OF RIGHT TEMPORAL SHARP WAVES. HYPERVENTILATION WAS NOT PERFORMED. PHOTIC STIMULATION PRODUCED WAS NOT DONE. IMPRESSION: THIS IS A SEVERELY ABNORMAL EEG DUE TO A VERY DEPRESSED BACKGRIOUND WITH RARE BRIEF EPISODES OF SHARP WAVES IN THE RIGHT TEMPOTAL REGION LASTING 1-2 SECONDS. THESE FINDINGS INDICATE THE PRESENCE OF A SEVERE DIFFUSE DISTURBANCE IN CEREBRAL FUNCTION AND A RIGHT TEMPORAL SUPERIMPOSED FOCAL LESION.
== END 2022-02-23 21:57 | disposition expired | DRG 296 ==
LOC: ER 04:02 → EDBD 04:02 → ERHOLD 07:18 → 3RD-ICU 11:17
PROVIDERS: ADMIT Hospitalist; ATTEND Hospitalist
PROC: 06HM33Z Insertion of Infusion Device into Right Femoral Vein, Percutaneous Approach (ICD-10-PCS; principal; 2022-02-23)
PROC: 5A1935Z Respiratory Ventilation, Less than 24 Consecutive Hours (ICD-10-PCS; 2022-02-23)
PROC: 5A1D70Z Performance of Urinary Filtration, Intermittent, Less than 6 Hours Per Day (ICD-10-PCS; 2022-02-23)
PROC: 3E033XZ Introduction of Vasopressor into Peripheral Vein, Percutaneous Approach (ICD-10-PCS; 2022-02-23)
DX: I46.9 Cardiac arrest, cause unspecified (principal); N18.6 End stage renal disease; K72.00 Acute and subacute hepatic failure without coma; R40.20 Unspecified coma; E87.2 Acidosis; G93.1 Anoxic brain damage, not elsewhere classified; I12.0 Hypertensive chronic kidney disease with stage 5 chronic kidney disease or end stage renal disease; R57.0 Cardiogenic shock; E11.22 Type 2 diabetes mellitus with diabetic chronic kidney disease; K21.9 Gastro-esophageal reflux disease without esophagitis; G89.29 Other chronic pain; I25.10 Atherosclerotic heart disease of native coronary artery without angina pectoris; E78.5 Hyperlipidemia, unspecified; E03.9 Hypothyroidism, unspecified; E87.5 Hyperkalemia; N25.0 Renal osteodystrophy; R15.9 Full incontinence of feces; Z99.2 Dependence on renal dialysis; Z66 Do not resuscitate; Z20.822 Contact with and (suspected) exposure to COVID-19; D72.829 Elevated white blood cell count, unspecified
CPT/HCPCS: 36415; 51702; 70450; 71045; 80053; 82805; 83605; 83735; 83880; 84484; 85025; 85610; 87040; 90935; 92950; 93005; 94002; 94003; 95816; 99291; J0171; J1265; J1644; J1815; J3370; J7040; J7050; U0003